=== PATIENT | male | born 1960 | race Caucasian/White ===

== ENCOUNTER 2020-02-07 16:58 | Emergency (ER) | payer BC ==
--- NOTE | 2020-02-07 18:23 | EDM.PDOC ---
ED HPI GENERAL MEDICAL PROBLEM - General Chief Complaint: Skin Complaint Stated Complaint: LEFT ARM BUG BITE INFECTION Time Seen by Provider: 02/07/20 18:06 Source of Information: Reports: Patient History Limitations: Reports: No Limitations - History of Present Illness INITIAL COMMENTS - FREE TEXT/NARRATIVE: Patient presents for evaluation of an itchy area to his left leg as well as the left wrist region. These have come on in the last couple of days. He was picking blueberries out in the brush recently. He was wearing a watch and the area of irritation of his left wrist corresponds to the shape of the watch. He states that he has never reacted to this particular watch in the past. The leg shows several raised spots which are quite itchy. He put toothpaste on it earlier today to try and reduce the itching but it did not change anything. He is also concerned about an area of red streaking going up the left arm from the area of irritation at his wrist. Onset: Gradual Duration: Day(s): (2) Location: Reports: Upper Extremity, Left, Lower Extremity, Left Quality: Reports: Other (Itching) Severity: Mild Improves with: Reports: None Worsens with: Reports: None Context: Reports: Other (Outside activity) Associated Symptoms: Reports: No Other Symptoms - Related Data Allergies Allergy/AdvReac Type Severity Reaction Status Date / Time No Known Allergies Allergy Verified 02/07/20 17:19 Home Meds: Home Meds . [Unable to Verify Home Med List] 02/07/20 [History] Past Medical History Cardiovascular History: Reports: Hypertension Respiratory History: Reports: Sleep Apnea Other Respiratory History: cpap Musculoskeletal History: Reports: None - Past Surgical History Head Surgeries/Procedures: Reports: None Cardiovascular Surgical History: Reports: None Respiratory Surgical History: Reports: None Musculoskeletal Surgical History: Reports: Other (See Below) Other Musculoskeletal Surgeries/Procedures:: knee surgery Dermatological Surgical History: Reports: None Social & Family History - Tobacco Use Used Tobacco, but Quit: Yes Month/Year Tobacco Last Used: 2004 - Caffeine Use Caffeine Use: Reports: Coffee - Recreational Drug Use Recreational Drug Use: No ED ROS GENERAL - Review of Systems Review Of Systems: Comprehensive ROS is negative, except as noted in HPI. ED EXAM, SKIN/RASH Exam: See Below Text/Narrative:: This is an adult male seated in room 2. He scratches occasionally at the left leg and wrist regions. Exam Limited By: No Limitations General Appearance: Alert, No Apparent Distress Extremities: Other (Left wrist shows an area of diffuse redness, mild in nature, along with a central red spot. There is a line of proximal streaking going up the dorsal aspect of the left forearm. There is no axillary mass or discomfort. The medial aspect of the left leg shows 7 raised red crusted linear lesions.) Course - Vital Signs Last Recorded V/S: Last Vital Signs Temp 36.6 C 02/07/20 17:25 Pulse 71 02/07/20 17:25 Resp 16 02/07/20 17:25 BP 155/80 H 02/07/20 17:25 Pulse Ox 96 02/07/20 17:25 - Re-Assessments/Exams Free Text/Narrative Re-Assessment/Exam: 02/07/20 23:12 His leg definitely and his wrist probably are poison sachi. I recommend using Benadryl 25 mg 2 or 3 times a day for itching. He will be sent with a prescription for triamcinolone 0.1% cream to be applied twice daily to the itchy areas. The importance of laundering everything he has been in contact with, including footwear was reviewed. He does not need systemic steroids at this point. Return to ER if feeling worse in any way. Departure - Departure Time of Disposition: 18:18 Disposition: Home, Self-Care 01 Condition: Good Clinical Impression: Contact dermatitis due to poison sachi - Discharge Information Instructions: Poison Sachi Dermatitis, [id number] Referrals: PCP,None [Primary Care Provider] - Forms: ED Department Discharge Additional Instructions: Take Benadryl 25 mg twice a day for the next 3 days in addition to your Zyrtec. Apply triamcinolone cortisone cream to itchy areas in a thin layer twice a day for the next 7 days. You can use ibuprofen or Aleve for additional help. Be sure to wash anything that your skin may have been in contact with recently including shoes, shoelaces and furniture. Return to ER if feeling worse in any way. Sepsis Event Note (ED) - Evaluation Sepsis Screening Result: No Definite Risk - Focused Exam Vital Signs: Vital Signs Temp Pulse Resp BP Pulse Ox 02/07/20 17:25 36.6 C 71 16 155/80 H 96 02/07/20 17:22 36.6 C 71 16 155/80 H 96
== END 2020-02-07 19:06 | disposition home or self-care (01) ==
LOC: JP.ED 16:58
DX: L23.7 Allergic contact dermatitis due to plants, except food (principal); I10 Essential (primary) hypertension; Z87.891 Personal history of nicotine dependence
CPT/HCPCS: 99282